=== PATIENT | female | born 1955 | race Caucasian/White ===

== ENCOUNTER 2019-04-03 01:33 | Outpatient (CLI) | payer MEDICARE, OTHER | END 2019-04-03 01:34 | disposition critical access hospital (66) | LOC: EMS 01:33 | PROVIDERS: ATTEND Surgery | DX: K92.1 Melena (principal); R42 Dizziness and giddiness | CPT/HCPCS: A0425; A0427 ==

== ENCOUNTER 2019-04-03 02:01 | Observation (INO) | payer MEDICARE, OTHER ==
[2019-04-03] MEDS ORDERED: SODIUM CHLORIDE 0.9% 1,000 ML IV STA (02:15)
[2019-04-03] MEDS ORDERED: IOVERSOL 320 100 ML VIAL IVP ONE ×2 (02:31→03:16)
--- NOTE | 2019-04-03 02:32 | ED Physician Documentation ---
History of Present Illness - Stated complaint Stated Complaint: DIARRHEA, RECTAL BLEED - Chief complaint Chief Complaint: Abd Pain - History obtained from History obtained from: Patient - History of Present Illness Timing: Yesterday Pain level max: 4 Pain level now: 0 - Additonal information Additional information: Patient with diarrhea since yesterday. BRBPR tonight with diarrhea. States felt lightheaded and dizzy after. no fevers. no recent abx. Travelled to [place] a few weeks ago. No recent surgery. No vomiting. Reportedly normal colonoscopy 5 years ago. Nothing makes it better or worse. Had a second near syncopal episode with EMS tonight. 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 : None HEENT: None Psych: None Musculoskeletal: None Derm: None - Past Surgical History Past Surgical History: No - Present Medications Home Medications: Ambulatory Orders Medication Instructions Recorded Confirmed Lisinopril/Hydrochlorothiazide 1 each PO 01/06/14 01/06/14 [Lisinopril-Hctz 20-12.5 mg Tab] - Allergies Allergies/Adverse Reactions: Allergies Allergy/AdvReac Type Severity Reaction Status Date / Time No Known Drug Allergies Allergy Verified 01/06/14 19:17 - Social History Does the pt smoke?: No Smoking Status: Never smoker Does the pt drink ETOH?: No Does the pt have substance abuse?: No - Immunizations Immunizations are current?: Yes - POLST Patient has POLST: No PD ED PE NORMAL - Vitals Vital signs reviewed: Yes - General General: Alert and oriented X 3, No acute distress, Well developed/nourished - HEENT HEENT: Moist mucous membranes - Neck Neck: Supple, no meningeal sign - Cardiac Cardiac: RRR, Strong equal pulses - Respiratory Respiratory: No respiratory distress, Clear bilaterally - Abdomen Abdomen: Normal bowel sounds, Soft, Non tender, Non distended - Female Female : Regional Environmental Manager present (Radha RN), Other (BRB in the rectal vault. 1 small non-bleeding hemorrhoid. ) - Back Back: No CVA TTP, No spinal TTP - Derm Derm: Warm and dry, No rash - Extremities Extremities: No edema - Neuro Neuro: Alert and oriented X 3 - Psych Psych: Normal mood, Normal affect Results - Vitals Vitals: Vital Signs - 24 hr 04/03/19 04/03/19 04/03/19 02:05 02:23 02:54 Temperature 36.3 C L Heart Rate 82 67 Respiratory 16 17 16 Rate Blood Pressure 195/103 H 145/87 H O2 Saturation 98 99 04/03/19 04:16 Temperature Heart Rate 69 Respiratory 18 Rate Blood Pressure 141/76 H O2 Saturation 99 Oxygen O2 Source Room air - Labs Labs: Laboratory Tests 04/03/19 04/03/19 04/03/19 02:30 02:30 02:30 WBC 6.8 RBC 3.56 L Hgb 9.8 L Hct 29.3 L MCV 82.2 MCH 27.5 MCHC 33.4 RDW 15.1 H Plt Count 247 MPV 6.3 L Neut # (Auto) 4.5 Lymph # (Auto) 1.7 Garden # (Auto) 0.4 Eos # (Auto) 0.1 Baso # (Auto) 0.0 Absolute Nucleated RBC 0.00 Nucleated RBC % 0.0 Sodium 140 Potassium 3.9 Chloride 107 Carbon Dioxide 25 Anion Gap 8.0 BUN 24 H Creatinine 1.0 Estimated GFR (MDRD) 56 L Glucose 128 H Calcium 8.1 L Total Bilirubin 0.4 AST 19 ALT 15 Alkaline Phosphatase 45 Total Protein 5.4 L Albumin 3.1 L Globulin 2.3 Albumin/Globulin Ratio 1.3 Lipase 46 Blood Type A POSITIVE Antibody Screen NEGATIVE - Rads (name of study) CT abdomen pelvis Radiology: Prelim report reviewed, EMP read contemporaneously, See rad report (Colonic diverticulosis with no definite diverticulitis. 2. Liquid stool in the colon consistent with a history of diarrhea. 3. No other acute inflammatory or obstructive process seen in the abdomen or pelvis. ) PD MEDICAL DECISION MAKING - ED course Complexity details: reviewed results, re-evaluated patient, considered differential, d/w patient, d/w field consultant ED course: 63-year-old female presents to the emergency department with lower GI bleeding and diarrhea. No acute findings on CT scan. She is found to be anemic. Unclear where her normal hemoglobin and hematocrit are. Given her new anemia, at least compared to her last CBC which she estimates was 2 years ago, I think it is prudent to place her in observation for serial H&H. She had a normal colonoscopy 5 years ago. General surgery can be consulted during the daytime by the hospitalist. Discussed the case with hospitalist, Dr. Madsen who accepts. This document was made in part using voice recognition software. While efforts are made to proofread this document, sound alike and grammatical errors may occur. Departure - Departure Disposition: ED Place in Observation Clinical Impression: Hematochezia Anemia Qualifiers: Anemia type: unspecified type Qualified Code(s): D64.9 - Anemia, unspecified GI bleed Qualifiers: GI bleed type/associated pathology: unspecified gastrointestinal hemorrhage type Qualified Code(s): K92.2 - Gastrointestinal hemorrhage, unspecified Condition: Stable
[2019-04-03 02:41] LABS: BASOPHILS % (AUTO) 0.6 %; EOSINOPHILS # (AUTO) 0.1 10^3/uL (0.0-0.7); EOSINOPHILS % (AUTO) 1.6 %; HGB - HEMOGLOBIN 9.8 g/dL (12.0-16.0); LYMPHOCYTES # (AUTO) 1.7 10^3/uL (1.5-3.5); LYMPHOCYTES % (AUTO) 25.4 %; MEAN CORPUSCULAR HEMOGLOBIN 27.5 pg (27.0-31.0); MEAN CORPUSCULAR HGB CONC 33.4 g/dL (32.0-36.0); MEAN CORPUSCULAR VOLUME 82.2 fL (81.0-99.0); MEAN PLATELET VOLUME 6.3 fL (7.9-10.8); MONOCYTES # (AUTO) 0.4 10^3/uL (0.0-1.0); MONOCYTES % (AUTO) 6.3 %; NEUTROPHILS # (AUTO) 4.5 10^3/uL (1.5-6.6); NEUTROPHILS % (AUTO) 66.1 %; PLT - PLATELET COUNT 247 10^3/uL (130-450); RED BLOOD COUNT 3.56 10^6/uL (4.20-5.40); RED CELL DISTRIBUTION WIDTH 15.1 % (12.0-15.0); WHITE BLOOD COUNT 6.8 x10^3/uL (4.8-10.8)
[2019-04-03 02:53] LABS: ALBUMIN 3.1 g/dL (3.2-5.5); ALBUMIN/GLOBULIN RATIO 1.3 (1.0-2.2); BILIRUBIN,TOTAL 0.4 mg/dL (0.2-1.0); CALCIUM 8.1 mg/dL (8.5-10.3); TOTAL PROTEIN 5.4 g/dL (6.7-8.2)
--- NOTE | 2019-04-03 03:38 | CT Report ---
Reason: diarrhea, hematochezia Procedure Date: 04/03/2019 Accession Number: [id number] / [id number] Procedure: CT - Abdomen/Pelvis W CPT Code: FULL RESULT: EXAM: CT ABDOMEN AND PELVIS EXAM DATE: 04/03/2019 03:18 AM. CLINICAL HISTORY: Diarrhea, hematochezia. COMPARISONS: None. TECHNIQUE: Routine helical CT imaging was performed through the abdomen and pelvis. IV contrast: [id number] 100ml. Enteric contrast: No. Reconstructions: Coronal and sagittal. In accordance with CT protocol optimization, one or more of the following dose reduction techniques were utilized for this exam: automated exposure control, adjustment of mA and/or KV based on patient size, or use of iterative reconstructive technique. FINDINGS: Lung Bases: Unremarkable. Liver: No focal abnormality seen. Gallbladder/Bile Ducts: Unremarkable. Spleen: Normal. Pancreas: Normal. Adrenal Glands: Normal. Kidneys: Normal. No masses or hydronephrosis. Peritoneal Cavity/Bowel: Colonic diverticulosis. No diverticulitis identified. Liquid stool in the colon. No bowel obstruction seen. No free air or free fluid. No lymphadenopathy. Appendix appears normal. Pelvic Organs: Normal. The bladder and visualized pelvic organs are within normal limits. Vasculature: Moderate atherosclerosis. No aortic aneurysm. Bones: Degenerative changes in the spine. Other: None. IMPRESSION: 1. Colonic diverticulosis with no definite diverticulitis. 2. Liquid stool in the colon consistent with a history of diarrhea. 3. No other acute inflammatory or obstructive process seen in the abdomen or pelvis. RADIA
[2019-04-03] MEDS ORDERED: SODIUM CHLORIDE FLUSH 0.9% 10 ML SYRINGE IVP PRN (04:24)
--- NOTE | 2019-04-03 05:29 | HISTORY & PHYSICAL EXAMINATION ---
Chief Complaint - Chief Complaint Chief Complaint: bright red blood per rectum History of Present Illness - Admitted From Admitted From:: [facility] ED - History Obtained From Records Reviewed: yes History obtained from: patient - History of Present Illness HPI Comment/Other: Patient seen on 04/03/19 at 0500 am Patient is a 63 y/o female who is in very good health. She presented to the ED today via EMS after having about 6 episodes of bloody bowel movement at home. She reports that there was more blood than stool. Onset of her symptoms was around 0830pm on 04/02/19 about 1hr after she had a deli sandwich for dinner. Earlier in the day she played tennis with no difficulty. After the first episode she felt very dizzy and weak and could barely get out of the bathroom. She dialed 911. When EMS arrived, her vitals were stable. However, in the course of their evaluation she reported not feeling well and "phased out". Her SBP at the time was in the 70's. She denied any previous occurrence of these symptoms. She denied chest pain, LEFTY, abd pain, n/v, fever or chills. 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 She was on a medication whose name she does not remember and is no longer taking. She also use to take a blood pressure medication during that time but no longer does so. The rest of her history is unremarkable. 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 : reports: None HEENT: reports: None Psych: reports: None Musculoskeletal: reports: None Derm: reports: None MRSA Hx?: No - Past Surgical History Ortho: reports: ACL reconstruction (left knee) - Family & Social History Family History: Mother: (mother: from pneumonia, sister had brain aneurysm), Father: , Renal Disease/Failure Family History Comment/Other: She is the only surviving member of her family Living arrangement: At home Living Situation: Alone Social History Notes: She denies tobacco use, alcohol or illicit drug use - POLST Patient has POLST: No POLST Status: Full Code Meds/Allgy - Home Medications Home Medications: Ambulatory Orders Medication Instructions Recorded Confirmed Lisinopril/Hydrochlorothiazide 1 each PO 01/06/14 01/06/14 [Lisinopril-Hctz 20-12.5 mg Tab] - Allergies Allergies/Adverse Reactions: Allergies Allergy/AdvReac Type Severity Reaction Status Date / Time No Known Drug Allergies Allergy Verified 01/06/14 19:17 Review of Systems - Constitutional Constitutional: reports: Weakness. denies: Fatigue, Fever, Chills, Malaise, Poor appetite, Diaphoresis, Night sweats - Eyes Eyes: denies: Pain, Blurred vision, Vision loss, Dipolpia - Ears, Nose & Throat Ears, Nose & Throat: denies: Nasal pain, Nasal discharge, Sore throat, Hoarseness - Cardiovascular Cariovascular: reports: Lightheadedness. denies: Irregular heart rate, Palpitations, Chest pain, Edema, Syncope, Exertional dyspnea, Decr. exercise tolerance - Respiratory Respiratory: denies: Cough, Sputum production, Wheezing, SOB at rest - Gastrointestinal Gastrointestinal: reports: Diarrhea, Rectal bleeding, Bloody stools. denies: Ab dominal pain, Abdominal distention, Nausea, Vomiting, Coffee grounds emesis, Reflux/heartburn, Poor appetite - Genitourinary Genitourinary: denies: Dysuria, Frequency, Urgency, Hematuria, Incontinence, Flank pain, Nocturia, Urethral discharge - Musculoskeletal Musculoskeletal: denies: Muscle pain, Back pain, Muscle aches, Stiffness - Integumentary Integumentary: denies: Rash, Pruritis, Lesions - Psychiatric Psychiatric: denies: Depression, Anxiety - Endocrine Endocrine: denies: Polyuria, Polydypsia - Hematologic/Lymphatic Hematologic/Lymphatic: denies: Anemia, Bruising, Petechiae Prior Level of Functionality: She is very active. 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 negative: Lethargic Eyes Bilateral: positive: Normal inspection, PERRL, EOMI ENT: positive: ENT inspection nml, Pharynx nml Neck: positive: Nml inspection, No JVD, Trachea midline Respiratory: positive: Chest non-tender, No respiratory distress, Breath sounds nml Cardiovascular: positive: Regular rate & rhythm, No murmur Abdomen: positive: Non-tender, No organomegaly, Nml bowel sounds, No distention. negative: Guarding, Rebound Rectal: positive: Bloody stool Back: positive: Nml inspection Skin: positive: Color nml, No rash, Warm, Dry Extremities: positive: Non-tender, Full ROM, Nml appearance, No pedal edema Neurologic/Psychiatric: positive: Oriented x3, CN's nml (2-12) Conclusion/Plan - Problem List (1) GI bleed Conclusion/Plan: Etiology undermined NPO. IV hydration with normal saline Serial H&H q6hr X 4 Consult General Surgery Qualifiers: GI bleed type/associated pathology: unspecified gastrointestinal hemorrhage type Qualified Code(s): K92.2 - Gastrointestinal hemorrhage, unspecified (2) Hypertension Conclusion/Plan: No longer taking any medication - Lab Results Fish Bones: 04/03/19 02:30 04/03/19 02:30 - Diagnostic Imaging Results Diagnostic Imaging Results: positive: Final report reviewed Core Measures - Anticipated LOS I expect patient to be DC'd or transferred within 96 hours.: Yes - DVT/VTE - Prophylaxis VTE/DVT Device ordered at admit?: Yes VTE/DVT Prophylaxis med ordered at admit?: No Not Ordered - Medical Reason: Contraindicated (bloody stools)
[2019-04-03] MEDS ORDERED: SODIUM CHLORIDE 0.9% 500 ML IV ONE (06:28)
[2019-04-03 06:52] LABS: BILIRUBIN,URINE NEGATIVE (NEGATIVE); GLUCOSE, URINE (UA) NEGATIVE (NEGATIVE); KETONES,URINE (UA) NEGATIVE (NEGATIVE); LEUKOCYTE ESTERASE, URINE NEGATIVE (NEGATIVE); NITRITE,URINE NEGATIVE (NEGATIVE); OCCULT BLOOD,URINE SMALL (NEGATIVE); PROTEIN,URINE NEGATIVE (NEGATIVE); UROBILINOGEN,URINE 0.2 (NORMAL) E.U./dL (NORMAL)
[2019-04-03 07:05] LABS: CLARITY,URINE CLEAR (CLEAR)
[2019-04-03 07:33] LABS: AMORPHOUS SEDIMENT,UR Few /LPF; BACTERIA,URINE Few /HPF (None Seen); RBC,URINE 0-5 /HPF (0-5); SQUAMOUS EPITHELIAL CELL,UR FEW Squamous (<= Few)
[2019-04-03 08:00] LABS: ABSOLUTE RETICS # AUTO 0.04 10^6/uL (0.020-0.110); MEAN RETIC VALUE 100.7; RED BLOOD COUNT 2.91 10^6/uL (4.20-5.40)
[2019-04-03 08:06] LABS: MEAN CORPUSCULAR HEMOGLOBIN 27.2 pg (27.0-31.0); MEAN CORPUSCULAR HGB CONC 32.9 g/dL (32.0-36.0); MEAN CORPUSCULAR VOLUME 82.6 fL (81.0-99.0); MEAN PLATELET VOLUME 6.2 fL (7.9-10.8); RED BLOOD COUNT 2.94 10^6/uL (4.20-5.40); RED CELL DISTRIBUTION WIDTH 15.3 % (12.0-15.0)
[2019-04-03 08:19] LABS: % IRON SATURATION 13 % (20-50); IRON 37 ug/dL (28-170); TOTAL IRON BINDING CAPACITY 277 ug/dL (250-450); TRANSFERRIN 198 mg/dL (192-382)
[2019-04-03] MEDS: MIDODRINE 2.5 MG TABLET PO SCH ×2 (08:20→12:03)
[2019-04-03] MEDS: SODIUM CHLORIDE 0.9% 1,000 ML IV SCH ×2 (08:20→19:29)
[2019-04-03 08:28] LABS: INR 1.1 (0.8-1.2); PT - PROTHROMBIN TIME 11.9 secs (9.9-12.6)
[2019-04-03 08:37] LABS: FERRITIN 11.6 ng/mL (11.0-306.8)
[2019-04-03] MEDS: SODIUM CHLORIDE FLUSH 0.9% 10 ML SYRINGE IVP SCH ×2 (09:51→17:27)
[2019-04-03] MEDS: POLYETHYLENE GLYCOL 3350 17 GM PACKET PO SCH (09:51)
--- NOTE | 2019-04-03 10:31 | CONSULTATION NOTE ---
Referring Provider Consult Date: 04/03/19 Chief Complaint - Chief Complaint Chief Complaint: blood in stool History of Present Illness - History of Present Illness HPI Comment/Other: 63 yo woman noted bloody BMs overnight and this morning. Last cscope 5 years ago and normal. 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 : reports: None HEENT: reports: None Psych: reports: None Musculoskeletal: reports: None Derm: reports: None MRSA Hx?: No - Past Surgical History Ortho: reports: ACL reconstruction - Family & Social History Family History: Mother: (mother: from pneumonia, sister had brain aneurysm), Father: , Renal Disease/Failure Family History Comment/Other: She is the only surviving member of her family Living arrangement: At home Living Situation: Alone Social History Notes: She denies tobacco use, alcohol or illicit drug use - POLST Patient has POLST: No POLST Status: Full Code Meds/Allgy - Home Medications Home Medications: Ambulatory Orders Medication Instructions Recorded Confirmed Lisinopril/Hydrochlorothiazide 1 each PO 01/06/14 01/06/14 [Lisinopril-Hctz 20-12.5 mg Tab] - Allergies Allergies/Adverse Reactions: Allergies Allergy/AdvReac Type Severity Reaction Status Date / Time No Known Drug Allergies Allergy Verified 01/06/14 19:17 Exam - Vital Signs Vital Signs: Vital Signs x48h Temp Pulse Pulse Pulse Pulse Resp BP 04/03/19 08:24 93 04/03/19 08:22 78 04/03/19 08:20 36.6 C 71 17 04/03/19 06:47 65 04/03/19 06:25 62 04/03/19 06:21 61 04/03/19 06:10 36.6 C 74 18 04/03/19 05:42 36.3 C L 67 17 04/03/19 05:20 63 16 117/85 H 04/03/19 04:41 65 18 109/66 04/03/19 04:16 69 18 141/76 H 04/03/19 02:54 67 16 145/87 H BP BP BP Pulse Ox 04/03/19 08:24 57/34 L 04/03/19 08:22 121/59 L 04/03/19 08:20 132/68 H 98 04/03/19 06:47 115/62 04/03/19 06:25 90/47 L 04/03/19 06:21 77/40 L 04/03/19 06:10 131/66 H 100 04/03/19 05:42 100 04/03/19 05:20 04/03/19 04:41 04/03/19 04:16 99 04/03/19 02:54 99 - Physical Exam General Appearance: positive: No acute distress Eyes Bilateral: positive: Normal inspection Abdomen: positive: Non-tender Extremities: positive: Non-tender Neurologic/Psychiatric: positive: Oriented x3 Conclusion/Plan - Diagnosis Diagnosis: GI bleed - Plan Plan: Prep today for colonoscopy tomorrow - Lab Results Fish Bones: 04/03/19 07:47 04/03/19 02:30
[2019-04-03 10:46] LABS: HB2 TOTAL 7.9 g/dL; HEMOGLOBIN A1C 0.34 g/dL; HEMOGLOBIN A1C % 6.1 % (4.6-6.2)
--- NOTE | 2019-04-03 11:22 | Ultrasound Report ---
Reason: syncope Procedure Date: 04/03/2019 Accession Number: [id number] / [id number] Procedure: US - Carotid Doppler Complete CPT Code: FULL RESULT: EXAM: BILATERAL CAROTID AND VERTEBRAL ARTERY DUPLEX DOPPLER ULTRASOUND: EXAM DATE: 04/03/2019 10:55 AM CLINICAL HISTORY: Syncope. COMPARISON: None. TECHNIQUE: Grayscale imaging, color Doppler, and duplex spectral Doppler were used to evaluate the carotid and vertebral arteries bilaterally. Static images were obtained. FINDINGS: There is mild intimal thickening bilaterally. No significant plaque is identified in the right or left common or internal carotid arteries. Normal antegrade flow is present in bilateral vertebral arteries. VELOCITIES (cm/sec): RIGHT: CCA mid: PSV 109 cm/sec CCA dist: PSV 93 cm/sec ICA prox: PSV 103 cm/sec, EDV 21 cm/sec ICA mid: PSV 106 cm/sec, EDV 38 cm/sec ICA dist: PSV 82 cm/sec, EDV 27 cm/sec ECA: PSV 115 cm/sec Vert: PSV 85 cm/sec ICA/CCA: 1.1 LEFT: CCA mid: PSV 114 cm/sec CCA dist: PSV 96 cm/sec ICA prox: PSV 92 cm/sec, EDV 31 cm/sec ICA mid: PSV 103 cm/sec, EDV 39 cm/sec ICA dist: PSV 79 cm/sec, EDV 31 cm/sec ECA: PSV 99 cm/sec Vert: PSV 66 cm/sec ICA/CCA: 1.1 ICA diameter stenosis: Right: <50% by velocity and <70% by NASCET criteria. Left: <50% by velocity and <70% by NASCET criteria. IMPRESSION: 1. No significant bilateral carotid artery plaquing. 2. In the right carotid artery there are no elevated carotid artery velocities to suggest hemodynamically significant stenosis. 3. In the left carotid artery there are no elevated carotid artery velocities to suggest hemodynamically significant stenosis. 4. Normal antegrade flow is present in bilateral vertebral arteries. General Recommendations: Stenosis =50% ICA - Follow-up ultrasound 6-12 months Stenosis <50% ICA - High Risk Patient with plaque - Follow-up ultrasound 1-2 years Normal Study but High Risk Patient - Follow-up ultrasound 3-5 years Management recommendations and diagnostic criteria are based on current IAC endorsed standards in Carotid Artery Stenosis: Grayscale and Doppler Ultrasound Diagnosis. Validated velocity measurements with angiographic measurements and velocity criteria are extrapolated from diameter data as defined by the Society of Radiologists in Ultrasound Consensus Conference Radiology 2003; 229;340-346. RADIA
--- NOTE | 2019-04-03 11:53 | PROVIDER PROGRESS NOTE ---
Subjective - Prog Note Date Prog Note Date: 04/03/19 - Subjective Pt reports feeling: No change Subjective: pt report she still has GI rectal bring bleed at the morning and very dizziness when she tried to stand up, her SBP is down to 57. pt denies chest pain, shortness of breath, fever, chill. GI surgeon was called and plan to have colonoscopy on tomorrow. Current Medications - Current Medications Current Medications: Active Medications Ferrous Sulfate (Feosol) 325 mg PO BIDWM [facility] Sodium Chloride (Normal Saline 0.9%) 1,000 mls @ 125 mls/hr IV .Q8H [facility] Last Admin: 04/03/19 08:20 Dose: 125 mls/hr Midodrine () 2.5 mg PO TIDWM [facility] Last Admin: 04/03/19 08:20 Dose: 2.5 mg Polyethylene Glycol (Miralax) 17 gm PO DAILY [facility] Last Admin: 04/03/19 09:51 Dose: Not Given Sodium Chloride (Normal Saline Flush 0.9%) 10 ml IVP PRN PRN PRN Reason: NEEDED PER PROVIDER ORDERS Sodium Chloride (Normal Saline Flush 0.9%) 10 ml IVP 0100,0900,1700 [facility] Last Admin: 04/03/19 09:51 Dose: Not Given Sodium Sulfate/Potass Sulf/Mag Sulf (Suprep Bowel Prep Kit) 177 ml PO 1800,0500 [facility] Stop: 04/04/19 05:01 [employer] [facility] Packs 1 each PO DAILY 04/03/19 Objective - Vital Signs/Intake & Output Reviewed Vital Signs: Yes Vital Signs: Vital Signs x48h Temp Pulse Pulse Pulse Pulse Resp BP 04/03/19 10:26 36.6 C 93 16 04/03/19 08:24 93 04/03/19 08:22 78 04/03/19 08:20 36.6 C 71 17 04/03/19 06:47 65 04/03/19 06:25 62 04/03/19 06:21 61 04/03/19 06:10 36.6 C 74 18 04/03/19 05:42 36.3 C L 67 17 04/03/19 05:20 63 16 117/85 H 04/03/19 04:41 65 18 109/66 04/03/19 04:16 69 18 141/76 H BP BP BP Pulse Ox 05/24/19 10:26 97 04/03/19 08:24 57/34 L 04/03/19 08:22 121/59 L 04/03/19 08:20 132/68 H 98 04/03/19 06:47 115/62 04/03/19 06:25 90/47 L 04/03/19 06:21 77/40 L 04/03/19 06:10 131/66 H 100 04/03/19 05:42 100 04/03/19 05:20 04/03/19 04:41 04/03/19 04:16 99 Intake & Output: Intake & Output 03/31/19 04/01/19 04/02/19 04/03/19 23:59 23:59 23:59 23:59 Intake Total 1800 Output Total 30 Balance 1770 - Objective General Appearance: positive: No acute distress, Alert. negative: Lethargic Eyes Bilateral: positive: Normal inspection, PERRL, No lid inflammation, Conjunctivae nml ENT: positive: ENT inspection nml, Pharynx nml, No signs of dehydration. negative: Purulent nasal drainage, Pharyngeal erythema, Oral lesions Neck: positive: Nml inspection, Thyroid nml, No JVD, Trachea midline. negative: Thyromegaly, Lymphadenopathy (R), Lymphadenopathy (L), Stiff neck, Swelling/br uising, Tracheal deviation Respiratory: positive: Chest non-tender, No respiratory distress, Breath sounds nml. negative: Wheezes, Rales, Rhonchi Cardiovascular: positive: Regular rate & rhythm, No murmur, No gallop. negative: Irregularly irregular, Extrasystoles, Tachycardia, Bradycardia, JVD present, Systolic murmur, Diastolic murmur Peripheral Pulses: 2+ Radial (R), 2+ Radial (L), 2+ Dorsalis pedis (R), 2+ Dorsalis pedis (L) Abdomen: positive: Non-tender, No organomegaly, Nml bowel sounds, No distention. negative: Tenderness, Guarding, Rebound Back: positive: Nml inspection. negative: CVA tenderness (R), CVA tenderness (L) Skin: positive: Color nml, No rash, Warm, Dry. negative: Cyanosis, Diaphoresis, Pallor Extremities: positive: Non-tender, Full ROM, Nml appearance. negative: Calf tenderness, Joint swelling, Adams's sign/cords Neurologic/Psychiatric: positive: Oriented x3, Motor nml, Sensation nml, Mood/affect nml. negative: Weakness, Sensory loss, Facial droop, Slurred/abnml speech, Depressed mood/affect - Lab Results Fish Bones: 04/03/19 07:47 04/03/19 02:30 Other Labs: Lab Results x24hrs 04/03/19 04/03/19 04/03/19 Range/Units 07:47 07:47 07:47 WBC (4.8-10.8) x10^3/uL RBC (4.20-5.40) 10^6/uL Hgb (12.0-16.0) g/dL Hct (37.0-47.0) % MCV (81.0-99.0) fL MCH (27.0-31.0) pg MCHC (32.0-36.0) g/dL RDW (12.0-15.0) % Plt Count (130-450) 10^3/uL MPV (7.9-10.8) fL Reticulocyte % (Auto) (0.5-2.3) % Neut # (Auto) (1.5-6.6) 10^3/uL Lymph # (Auto) (1.5-3.5) 10^3/uL [place] # (Auto) (0.0-1.0) 10^3/uL Eos # (Auto) (0.0-0.7) 10^3/uL Baso # (Auto) (0.0-0.1) 10^3/uL Absolute Nucleated RBC x10^3/uL Nucleated RBC % /100WBC Absolute Retic (0.020-0.110) 10^6/uL PT (9.9-12.6) secs INR (0.8-1.2) Sodium (135-145) mmol/L Potassium (3.5-5.0) mmol/L Chloride (101-111) mmol/L Carbon Dioxide (21-32) mmol/L Anion Gap (6-13) BUN (6-20) mg/dL Creatinine (0.4-1.0) mg/dL Estimated GFR (MDRD) (>89) Glucose (70-100) mg/dL Glycated Hemoglobin 6.1 (4.6-6.2) % Estim Average Glucose 128 H (70-100) Calcium (8.5-10.3) mg/dL Iron (28-170) ug/dL TIBC (250-450) ug/dL % Saturation (20-50) % Transferrin (192-382) mg/dL Ferritin (11.0-306.8) ng/mL Total Bilirubin (0.2-1.0) mg/dL AST (10-42) IU/L ALT (10-60) IU/L Alkaline Phosphatase (42-121) IU/L Lactate Dehydrogenase 97 (91-225) IU/L Troponin I < 0.04 (<0.49) ng/mL Total Protein (6.7-8.2) g/dL Albumin (3.2-5.5) g/dL Globulin (2.1-4.2) g/dL Albumin/Globulin Ratio (1.0-2.2) Lipase (22-51) U/L Vitamin B12 (180-914) pg/mL TSH (0.34-5.60) uIU/mL Cortisol AM Sample ug/dL Urine Color Urine Clarity (CLEAR) Urine pH (5.0-7.5) PH Ur Specific [place] (1.002-1.030) Urine Protein (NEGATIVE) mg/dL Urine Glucose (UA) (NEGATIVE) mg/dL Urine Ketones (NEGATIVE) mg/dL Urine Occult Blood (NEGATIVE) Urine Nitrite (NEGATIVE) Urine Bilirubin (NEGATIVE) Urine Urobilinogen (NORMAL) E.U./dL Ur Leukocyte Esterase (NEGATIVE) Urine RBC (0-5) /HPF Urine WBC (0-5) /HPF Ur Squamous Epith Cells (<= Few) Amorphous Sediment /LPF Urine Bacteria (None Seen) /HPF Ur Microscopic Review Urine Culture Comments Blood Type Antibody Screen 04/03/19 04/03/19 04/03/19 Range/Units 07:47 07:47 07:47 WBC (4.8-10.8) x10^3/uL RBC 2.91 L (4.20-5.40) 10^6/uL Hgb (12.0-16.0) g/dL Hct (37.0-47.0) % MCV (81.0-99.0) fL MCH (27.0-31.0) pg MCHC (32.0-36.0) g/dL RDW (12.0-15.0) % Plt Count (130-450) 10^3/uL MPV (7.9-10.8) fL Reticulocyte % (Auto) 1.38 (0.5-2.3) % Neut # (Auto) (1.5-6.6) 10^3/uL Lymph # (Auto) (1.5-3.5) 10^3/uL [place] # (Auto) (0.0-1.0) 10^3/uL Eos # (Auto) (0.0-0.7) 10^3/uL Baso # (Auto) (0.0-0.1) 10^3/uL Absolute Nucleated RBC x10^3/uL Nucleated RBC % /100WBC Absolute Retic 0.040 (0.020-0.110) 10^6/uL PT (9.9-12.6) secs INR (0.8-1.2) Sodium (135-145) mmol/L Potassium (3.5-5.0) mmol/L Chloride (101-111) mmol/L Carbon Dioxide (21-32) mmol/L Anion Gap (6-13) BUN (6-20) mg/dL Creatinine (0.4-1.0) mg/dL Estimated GFR (MDRD) (>89) Glucose (70-100) mg/dL Glycated Hemoglobin (4.6-6.2) % Estim Average Glucose (70-100) Calcium (8.5-10.3) mg/dL Iron 37 (28-170) ug/dL TIBC 277 (250-450) ug/dL % Saturation 13 L (20-50) % Transferrin 198 (192-382) mg/dL Ferritin 11.6 (11.0-306.8) ng/mL Total Bilirubin (0.2-1.0) mg/dL AST (10-42) IU/L ALT (10-60) IU/L Alkaline Phosphatase (42-121) IU/L Lactate Dehydrogenase (91-225) IU/L Troponin I (<0.49) ng/mL Total Protein (6.7-8.2) g/dL Albumin (3.2-5.5) g/dL Globulin (2.1-4.2) g/dL Albumin/Globulin Ratio (1.0-2.2) Lipase (22-51) U/L Vitamin B12 1853 H (180-914) pg/mL TSH (0.34-5.60) uIU/mL Cortisol AM Sample ug/dL Urine Color Urine Clarity (CLEAR) Urine pH (5.0-7.5) PH Ur Specific [place] (1.002-1.030) Urine Protein (NEGATIVE) mg/dL Urine Glucose (UA) (NEGATIVE) mg/dL Urine Ketones (NEGATIVE) mg/dL Urine Occult Blood (NEGATIVE) Urine Nitrite (NEGATIVE) Urine Bilirubin (NEGATIVE) Urine Urobilinogen (NORMAL) E.U./dL Ur Leukocyte Esterase (NEGATIVE) Urine RBC (0-5) /HPF Urine WBC (0-5) /HPF Ur Squamous Epith Cells (<= Few) Amorphous Sediment /LPF Urine Bacteria (None Seen) /HPF Ur Microscopic Review Urine Culture Comments Blood Type Antibody Screen 04/03/19 04/03/19 04/03/19 Range/Units 07:47 07:47 07:47 WBC 7.0 (4.8-10.8) x10^3/uL RBC 2.94 L (4.20-5.40) 10^6/uL Hgb 8.0 L (12.0-16.0) g/dL Hct 24.3 L (37.0-47.0) % MCV 82.6 (81.0-99.0) fL MCH 27.2 (27.0-31.0) pg MCHC 32.9 (32.0-36.0) g/dL RDW 15.3 H (12.0-15.0) % Plt Count 228 (130-450) 10^3/uL MPV 6.2 L (7.9-10.8) fL Reticulocyte % (Auto) (0.5-2.3) % Neut # (Auto) (1.5-6.6) 10^3/uL Lymph # (Auto) (1.5-3.5) 10^3/uL [place] # (Auto) (0.0-1.0) 10^3/uL Eos # (Auto) (0.0-0.7) 10^3/uL Baso # (Auto) (0.0-0.1) 10^3/uL Absolute Nucleated RBC x10^3/uL Nucleated RBC % /100WBC Absolute Retic (0.020-0.110) 10^6/uL PT (9.9-12.6) secs INR (0.8-1.2) Sodium (135-145) mmol/L Potassium (3.5-5.0) mmol/L Chloride (101-111) mmol/L Carbon Dioxide (21-32) mmol/L Anion Gap (6-13) BUN (6-20) mg/dL Creatinine (0.4-1.0) mg/dL Estimated GFR (MDRD) (>89) Glucose (70-100) mg/dL Glycated Hemoglobin (4.6-6.2) % Estim Average Glucose (70-100) Calcium (8.5-10.3) mg/dL Iron (28-170) ug/dL TIBC (250-450) ug/dL % Saturation (20-50) % Transferrin (192-382) mg/dL Ferritin (11.0-306.8) ng/mL Total Bilirubin (0.2-1.0) mg/dL AST (10-42) IU/L ALT (10-60) IU/L Alkaline Phosphatase (42-121) IU/L Lactate Dehydrogenase (91-225) IU/L Troponin I (<0.49) ng/mL Total Protein (6.7-8.2) g/dL Albumin (3.2-5.5) g/dL Globulin (2.1-4.2) g/dL Albumin/Globulin Ratio (1.0-2.2) Lipase (22-51) U/L Vitamin B12 (180-914) pg/mL TSH 2.74 (0.34-5.60) uIU/mL Cortisol AM Sample 13.7 ug/dL Urine Color Urine Clarity (CLEAR) Urine pH (5.0-7.5) PH Ur Specific [place] (1.002-1.030) Urine Protein (NEGATIVE) mg/dL Urine Glucose (UA) (NEGATIVE) mg/dL Urine Ketones (NEGATIVE) mg/dL Urine Occult Blood (NEGATIVE) Urine Nitrite (NEGATIVE) Urine Bilirubin (NEGATIVE) Urine Urobilinogen (NORMAL) E.U./dL Ur Leukocyte Esterase (NEGATIVE) Urine RBC (0-5) /HPF Urine WBC (0-5) /HPF Ur Squamous Epith Cells (<= Few) Amorphous Sediment /LPF Urine Bacteria (None Seen) /HPF Ur Microscopic Review Urine Culture Comments Blood Type Antibody Screen 04/03/19 04/03/19 04/03/19 Range/Units 06:10 05:24 02:30 WBC (4.8-10.8) x10^3/uL RBC (4.20-5.40) 10^6/uL Hgb (12.0-16.0) g/dL Hct (37.0-47.0) % MCV (81.0-99.0) fL MCH (27.0-31.0) pg MCHC (32.0-36.0) g/dL RDW (12.0-15.0) % Plt Count (130-450) 10^3/uL MPV (7.9-10.8) fL Reticulocyte % (Auto) (0.5-2.3) % Neut # (Auto) (1.5-6.6) 10^3/uL Lymph # (Auto) (1.5-3.5) 10^3/uL [place] # (Auto) (0.0-1.0) 10^3/uL Eos # (Auto) (0.0-0.7) 10^3/uL Baso # (Auto) (0.0-0.1) 10^3/uL Absolute Nucleated RBC x10^3/uL Nucleated RBC % /100WBC Absolute Retic (0.020-0.110) 10^6/uL PT 11.9 (9.9-12.6) secs INR 1.1 (0.8-1.2) Sodium (135-145) mmol/L Potassium (3.5-5.0) mmol/L Chloride (101-111) mmol/L Carbon Dioxide (21-32) mmol/L Anion Gap (6-13) BUN (6-20) mg/dL Creatinine (0.4-1.0) mg/dL Estimated GFR (MDRD) (>89) Glucose (70-100) mg/dL Glycated Hemoglobin (4.6-6.2) % Estim Average Glucose (70-100) Calcium (8.5-10.3) mg/dL Iron (28-170) ug/dL TIBC (250-450) ug/dL % Saturation (20-50) % Transferrin (192-382) mg/dL Ferritin (11.0-306.8) ng/mL Total Bilirubin (0.2-1.0) mg/dL AST (10-42) IU/L ALT (10-60) IU/L Alkaline Phosphatase (42-121) IU/L Lactate Dehydrogenase (91-225) IU/L Troponin I (<0.49) ng/mL Total Protein (6.7-8.2) g/dL Albumin (3.2-5.5) g/dL Globulin (2.1-4.2) g/dL Albumin/Globulin Ratio (1.0-2.2) Lipase (22-51) U/L Vitamin B12 (180-914) pg/mL TSH (0.34-5.60) uIU/mL Cortisol AM Sample ug/dL Urine Color YELLOW Urine Clarity CLEAR (CLEAR) Urine pH 7.0 (5.0-7.5) PH Ur Specific [place] <=1.005 (1.002-1.030) Urine Protein NEGATIVE (NEGATIVE) mg/dL Urine Glucose (UA) NEGATIVE (NEGATIVE) mg/dL Urine Ketones NEGATIVE (NEGATIVE) mg/dL Urine Occult Blood SMALL H (NEGATIVE) Urine Nitrite NEGATIVE (NEGATIVE) Urine Bilirubin NEGATIVE (NEGATIVE) Urine Urobilinogen 0.2 (NORMAL) (NORMAL) E.U./dL Ur Leukocyte Esterase NEGATIVE (NEGATIVE) Urine RBC 0-5 (0-5) /HPF Urine WBC 0-3 (0-5) /HPF Ur Squamous Epith Cells FEW Squamous (<= Few) Amorphous Sediment Few /LPF Urine Bacteria Few (None Seen) /HPF Ur Microscopic Review INDICATED Urine Culture Comments NOT INDICATED Blood Type A POSITIVE Antibody Screen NEGATIVE 04/03/19 04/03/19 Range/Units 02:30 02:30 WBC 6.8 (4.8-10.8) x10^3/uL RBC 3.56 L (4.20-5.40) 10^6/uL Hgb 9.8 L (12.0-16.0) g/dL Hct 29.3 L (37.0-47.0) % MCV 82.2 (81.0-99.0) fL MCH 27.5 (27.0-31.0) pg MCHC 33.4 (32.0-36.0) g/dL RDW 15.1 H (12.0-15.0) % Plt Count 247 (130-450) 10^3/uL MPV 6.3 L (7.9-10.8) fL Reticulocyte % (Auto) (0.5-2.3) % Neut # (Auto) 4.5 (1.5-6.6) 10^3/uL Lymph # (Auto) 1.7 (1.5-3.5) 10^3/uL [place] # (Auto) 0.4 (0.0-1.0) 10^3/uL Eos # (Auto) 0.1 (0.0-0.7) 10^3/uL Baso # (Auto) 0.0 (0.0-0.1) 10^3/uL Absolute Nucleated RBC 0.00 x10^3/uL Nucleated RBC % 0.0 /100WBC Absolute Retic (0.020-0.110) 10^6/uL PT (9.9-12.6) secs INR (0.8-1.2) Sodium 140 (135-145) mmol/L Potassium 3.9 (3.5-5.0) mmol/L Chloride 107 (101-111) mmol/L Carbon Dioxide 25 (21-32) mmol/L Anion Gap 8.0 (6-13) BUN 24 H (6-20) mg/dL Creatinine 1.0 (0.4-1.0) mg/dL Estimated GFR (MDRD) 56 L (>89) Glucose 128 H (70-100) mg/dL Glycated Hemoglobin (4.6-6.2) % Estim Average Glucose (70-100) Calcium 8.1 L (8.5-10.3) mg/dL Iron (28-170) ug/dL TIBC (250-450) ug/dL % Saturation (20-50) % Transferrin (192-382) mg/dL Ferritin (11.0-306.8) ng/mL Total Bilirubin 0.4 (0.2-1.0) mg/dL AST 19 (10-42) IU/L ALT 15 (10-60) IU/L Alkaline Phosphatase 45 (42-121) IU/L Lactate Dehydrogenase (91-225) IU/L Troponin I (<0.49) ng/mL Total Protein 5.4 L (6.7-8.2) g/dL Albumin 3.1 L (3.2-5.5) g/dL Globulin 2.3 (2.1-4.2) g/dL Albumin/Globulin Ratio 1.3 (1.0-2.2) Lipase 46 (22-51) U/L Vitamin B12 (180-914) pg/mL TSH (0.34-5.60) uIU/mL Cortisol AM Sample ug/dL Urine Color Urine Clarity (CLEAR) Urine pH (5.0-7.5) PH Ur Specific [place] (1.002-1.030) Urine Protein (NEGATIVE) mg/dL Urine Glucose (UA) (NEGATIVE) mg/dL Urine Ketones (NEGATIVE) mg/dL Urine Occult Blood (NEGATIVE) Urine Nitrite (NEGATIVE) Urine Bilirubin (NEGATIVE) Urine Urobilinogen (NORMAL) E.U./dL Ur Leukocyte Esterase (NEGATIVE) Urine RBC (0-5) /HPF Urine WBC (0-5) /HPF Ur Squamous Epith Cells (<= Few) Amorphous Sediment /LPF Urine Bacteria (None Seen) /HPF Ur Microscopic Review Urine Culture Comments Blood Type Antibody Screen ABX Reporting Has patient been on IV antibiotics over the past 48 hours?: No Sepsis Event Note (H) - Evaluation Current Stage of Sepsis: Ruled out Assessment/Plan - Problem List (1) Hematochezia Impression: pt report she had six times of fresh bleed at anus, and one more time at this morning. pt report she quit cigarette smoking more than 30yrs. she had health life style. She had colonoscopy a few yrs ago, which was normal per pt report. HGB is 9.8 at admission, H&H at morning is 8.0. continue H&H, and type and screen consult with GI surgeon, will plan to have colonoscopy on tomorrow. NPO afte midnight, IVF of NS continue lab monitor and vital monitor and closely monitor if pt continue to bleed Protonic IV daily (2) Anemia Impression: acute bleeding anemia. HGB is 9.8 at admission, H&H at morning is 8.0. MCV 82 iron study reveals mild iron deficiency, iron pill is prescribed continue H&H type and screen, will transfusion of blood as needed. Qualifiers: Anemia type: unspecified type Qualified Code(s): D64.9 - Anemia, unspecified (3) Orthostatic hypotension Impression: when pt standup, pt's SBP droop quickly from normal 120/130 to 50/70, and pause increase at the same time. pt report she did not have this kind of episode before and she did not take any blood pressure meds. she is not DM pt, pt has no cardiac problem before. But pt did have GI bleed and anemia, and volume depletion seems the cause ECHO and US of Carotid, reveals unremarkable IVF of NS continue H&H, type and scree, will transfusion of blood as needed. treat underline cause of rectal bleed, GI surgeon consult for colonoscopy check morning Cortisol and TSH are normal add midodrive at initial low dosage continue tele and vital monitor
[2019-04-03] MEDS: PANTOPRAZOLE 40 MG VIAL IVP SCH (12:17)
[2019-04-03 14:23] LABS: HGB - HEMOGLOBIN 8.1 g/dL (12.0-16.0); MEAN CORPUSCULAR HEMOGLOBIN 27.1 pg (27.0-31.0); MEAN CORPUSCULAR HGB CONC 32.9 g/dL (32.0-36.0); MEAN CORPUSCULAR VOLUME 82.2 fL (81.0-99.0); RED CELL DISTRIBUTION WIDTH 14.9 % (12.0-15.0); WHITE BLOOD COUNT 7.9 x10^3/uL (4.8-10.8)
[2019-04-03] MEDS: FERROUS SULFATE 325 MG TABLET PO SCH (17:26)
[2019-04-03] MEDS ORDERED: SODIUM/POTASSIUM/MAG SULFATES 354 ML PREP KIT PO SCH (18:00)
[2019-04-03 20:29] LABS: HGB - HEMOGLOBIN 7.6 g/dL (12.0-16.0); MEAN CORPUSCULAR HEMOGLOBIN 27.1 pg (27.0-31.0); MEAN CORPUSCULAR HGB CONC 32.6 g/dL (32.0-36.0); MEAN CORPUSCULAR VOLUME 83.2 fL (81.0-99.0); RED BLOOD COUNT 2.8 10^6/uL (4.20-5.40); WHITE BLOOD COUNT 6.9 x10^3/uL (4.8-10.8)
[2019-04-04] MEDS: SODIUM CHLORIDE 0.9% 1,000 ML IV SCH ×2 (03:10→04:09)
[2019-04-04 05:57] LABS: BASOPHILS % (AUTO) 0.7 %; EOSINOPHILS # (AUTO) 0.2 10^3/uL (0.0-0.7); EOSINOPHILS % (AUTO) 3.1 %; HGB - HEMOGLOBIN 8.1 g/dL (12.0-16.0); LYMPHOCYTES % (AUTO) 38.2 %; MEAN CORPUSCULAR HEMOGLOBIN 27.4 pg (27.0-31.0); MEAN CORPUSCULAR HGB CONC 32.8 g/dL (32.0-36.0); MEAN CORPUSCULAR VOLUME 83.4 fL (81.0-99.0); MEAN PLATELET VOLUME 6.2 fL (7.9-10.8); MONOCYTES # (AUTO) 0.4 10^3/uL (0.0-1.0); MONOCYTES % (AUTO) 6.7 %; NEUTROPHILS # (AUTO) 2.7 10^3/uL (1.5-6.6); NEUTROPHILS % (AUTO) 51.3 %; PLT - PLATELET COUNT 227 10^3/uL (130-450); RED BLOOD COUNT 2.96 10^6/uL (4.20-5.40); RED CELL DISTRIBUTION WIDTH 15.4 % (12.0-15.0); WHITE BLOOD COUNT 5.3 x10^3/uL (4.8-10.8)
[2019-04-04 06:10] LABS: CALCIUM 7.8 mg/dL (8.5-10.3); CREATININE 0.8 mg/dL (0.4-1.0)
[2019-04-04] MEDS: SODIUM CHLORIDE FLUSH 0.9% 10 ML SYRINGE IVP SCH ×2 (06:24→10:52)
[2019-04-04] MEDS: PANTOPRAZOLE 40 MG VIAL IVP SCH (06:24)
--- NOTE | 2019-04-04 08:59 | PROVIDER PROGRESS NOTE ---
Subjective - Prog Note Date Prog Note Date: 04/04/19 Prog Note Time: 08:56 - Subjective Pt reports feeling: Improved (Pt reports no bloody BMs overnight.) Objective - Vital Signs/Intake & Output Vital Signs: Vital Signs x48h Temp Pulse Pulse Pulse Pulse Resp BP 04/04/19 08:20 36.4 C L 78 14 163/81 H 04/04/19 04:57 85 114 H 76 04/04/19 04:15 36.7 C 79 18 147/68 H BP BP BP Pulse Ox 04/04/19 08:20 98 04/04/19 04:57 146/77 H 138/74 H 152/70 H 04/04/19 04:15 97 Intake & Output: Intake & Output 04/01/19 04/02/19 04/03/19 04/04/19 23:59 23:59 23:59 23:59 Intake Total 3450 1000 Output Total 680 800 Balance 2770 200 - Objective General Appearance: positive: No acute distress Abdomen: positive: Non-tender - Lab Results Fish Bones: 04/04/19 05:34 04/04/19 05:34 Other Labs: Lab Results x24hrs 04/04/19 04/04/19 04/03/19 Range/Units 05:34 05:34 20:21 WBC 5.3 6.9 (4.8-10.8) x10^3/uL RBC 2.96 L 2.80 L (4.20-5.40) 10^6/uL Hgb 8.1 L 7.6 L (12.0-16.0) g/dL Hct 24.7 L 23.2 L (37.0-47.0) % MCV 83.4 83.2 (81.0-99.0) fL MCH 27.4 27.1 (27.0-31.0) pg MCHC 32.8 32.6 (32.0-36.0) g/dL RDW 15.4 H 15.0 (12.0-15.0) % Plt Count 227 240 (130-450) 10^3/uL MPV 6.2 L 6.0 L (7.9-10.8) fL Neut # (Auto) 2.7 (1.5-6.6) 10^3/uL Lymph # (Auto) 2.0 (1.5-3.5) 10^3/uL [place] # (Auto) 0.4 (0.0-1.0) 10^3/uL Eos # (Auto) 0.2 (0.0-0.7) 10^3/uL Baso # (Auto) 0.0 (0.0-0.1) 10^3/uL Absolute Nucleated RBC 0.00 x10^3/uL Nucleated RBC % 0.1 /100WBC Sodium 142 (135-145) mmol/L Potassium 3.7 (3.5-5.0) mmol/L Chloride 115 H (101-111) mmol/L Carbon Dioxide 22 (21-32) mmol/L Anion Gap 5.0 L (6-13) BUN 13 (6-20) mg/dL Creatinine 0.8 (0.4-1.0) mg/dL Estimated GFR (MDRD) 72 L (>89) Glucose 109 H (70-100) mg/dL Glycated Hemoglobin (4.6-6.2) % Estim Average Glucose (70-100) Calcium 7.8 L (8.5-10.3) mg/dL Vitamin B12 (180-914) pg/mL Blood Type Recheck 04/03/19 04/03/19 04/03/19 Range/Units 14:18 14:18 07:47 WBC 7.9 (4.8-10.8) x10^3/uL RBC 3.00 L (4.20-5.40) 10^6/uL Hgb 8.1 L (12.0-16.0) g/dL Hct 24.7 L (37.0-47.0) % MCV 82.2 (81.0-99.0) fL MCH 27.1 (27.0-31.0) pg MCHC 32.9 (32.0-36.0) g/dL RDW 14.9 (12.0-15.0) % Plt Count 254 (130-450) 10^3/uL MPV 6.0 L (7.9-10.8) fL Neut # (Auto) (1.5-6.6) 10^3/uL Lymph # (Auto) (1.5-3.5) 10^3/uL [place] # (Auto) (0.0-1.0) 10^3/uL Eos # (Auto) (0.0-0.7) 10^3/uL Baso # (Auto) (0.0-0.1) 10^3/uL Absolute Nucleated RBC x10^3/uL Nucleated RBC % /100WBC Sodium (135-145) mmol/L Potassium (3.5-5.0) mmol/L Chloride (101-111) mmol/L Carbon Dioxide (21-32) mmol/L Anion Gap (6-13) BUN (6-20) mg/dL Creatinine (0.4-1.0) mg/dL Estimated GFR (MDRD) (>89) Glucose (70-100) mg/dL Glycated Hemoglobin 6.1 (4.6-6.2) % Estim Average Glucose 128 H (70-100) Calcium (8.5-10.3) mg/dL Vitamin B12 (180-914) pg/mL Blood Type Recheck A POSITIVE 04/03/19 Range/Units 07:47 WBC (4.8-10.8) x10^3/uL RBC (4.20-5.40) 10^6/uL Hgb (12.0-16.0) g/dL Hct (37.0-47.0) % MCV (81.0-99.0) fL MCH (27.0-31.0) pg MCHC (32.0-36.0) g/dL RDW (12.0-15.0) % Plt Count (130-450) 10^3/uL MPV (7.9-10.8) fL Neut # (Auto) (1.5-6.6) 10^3/uL Lymph # (Auto) (1.5-3.5) 10^3/uL [place] # (Auto) (0.0-1.0) 10^3/uL Eos # (Auto) (0.0-0.7) 10^3/uL Baso # (Auto) (0.0-0.1) 10^3/uL Absolute Nucleated RBC x10^3/uL Nucleated RBC % /100WBC Sodium (135-145) mmol/L Potassium (3.5-5.0) mmol/L Chloride (101-111) mmol/L Carbon Dioxide (21-32) mmol/L Anion Gap (6-13) BUN (6-20) mg/dL Creatinine (0.4-1.0) mg/dL Estimated GFR (MDRD) (>89) Glucose (70-100) mg/dL Glycated Hemoglobin (4.6-6.2) % Estim Average Glucose (70-100) Calcium (8.5-10.3) mg/dL Vitamin B12 1853 H (180-914) pg/mL Blood Type Recheck Sepsis Event Note (H) - Evaluation Current Stage of Sepsis: Ruled out Assessment/Plan - Problem List (1) GI bleed Impression: Pt stopped bleeding spontaneously. No bloody BMs and her H/H has been stable. Recommend advancing diet and follow up as outpatient as needed. Qualifiers: GI bleed type/associated pathology: unspecified gastrointestinal hemorrhage type Qualified Code(s): K92.2 - Gastrointestinal hemorrhage, unspecified
[2019-04-04 10:02] VITALS: BP 164/75
[2019-04-04] MEDS: POLYETHYLENE GLYCOL 3350 17 GM PACKET PO SCH (10:52)
[2019-04-04] MEDS: FERROUS SULFATE 325 MG TABLET PO SCH (10:56)
[2019-04-04] MEDS ORDERED: WHEAT DEXTRIN POWDER PACKET PO SCH (11:00)
--- NOTE | 2019-04-04 12:50 | Discharge Plan ---
Discharge Plan Disposition: Home, Self Care Condition: Good Prescriptions: Ferrous Gluconate 240 mg PO DAILY #30 tablet Wheat Dextrin [Benefiber] 1 each PO DAILY #30 powd.pack Diet: Regular Activity Restrictions: No Restrictions Shower Restrictions: No Driving Restrictions: No Additional Instructions or Follow Up instructions: You were admitted to the hospital for rectal bleeding with bright red blood. A consult was made to gastro-intestinal, who decided against a colonoscopy since your bleeding seemed to stop. A heart echocardiogram was completed since your blood pressure was dangerously low, which showed no evidence of a heart attack or valve abnormalities. It did show a thickened left ventricle called left ventricle hypertrophy and a condition called diastolic (resting) dysfunction, but a normal ejection fraction. This condition is many times caused by long standing uncontrolled blood pressure. The first line treatment for these 2 conditions is with a rate control medication called Metoprolol succinate. I will not prescribe this today since your blood pressure was very low just yesterday. Your blood levels became low from the bleeding, so we recommend that you take an iron supplement, which I have sent to the pharmacy. A hemoglobin A1C level was checked, and it was elevated at 6.1% (6.4% would indicate diabetes). I have provided teaching materials and recommend close follow up by your primary care provider. We learned that you have a condition called diverticulosis, so I have sent Benefiber to the pharmacy to be taken daily. Please follow up with your PCP within one week, and you will likely need a colonoscopy in the very near future to follow up on this bleeding event. No Smoking: If you smoke, Please STOP! Call for help.
--- NOTE | 2019-04-04 12:53 | DISCHARGE SUMMARY ---
Discharge Summary Admit Date: 04/03/19 Discharge Date: 04/04/19 Discharging Provider: Tamia Stephens Primary Care Provider: Amrita Sharma Code Status: Attempt Resuscitation Condition at Discharge: Good Discharge Disposition: 01 Home, Self Care - DIAGNOSES Admission Diagnoses: Gastrointestinal hemorrhage, unspecified (K92.2) Essential (primary) hypertension (I10) Discharge Diagnoses with Status of Each Condition: GI bleed (K92.2) Request outpatient colonoscopy since this event. Tolerating meals upon discharge, bleeding resolved Acute blood loss anemia (D62) Iron supplement x 30 days, follow up with PCP Hypertension (I10) suspected to be untreated Impaired fasting glucose (R73.01) HgA1C was 6.1%, teaching materials given, follow up with PCP Diverticulosis (K57.90) Known history, may be the most likely cause of this event, Benefiber daily, teaching given on diet choices, etc. 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 This abnormality is likely due to untreated HTN, recommend metoprolol succinate LVH (left ventricular hypertrophy) (I51.7) Rate control medications are re commended, likely a result of untreated HTN - HPI History of Present Illness: HPI per Dr. Madsen: Patient seen on 04/03/19 at 0500 am Patient is a 63 y/o female who is in very good health. She presented to the ED today via EMS after having about 6 episodes of bloody bowel movement at home. She reports that there was more blood than stool. Onset of her symptoms was around 0830pm on 04/02/19 about 1hr after she had a deli sandwich for dinner. Earlier in the day she played tennis with no difficulty. After the first episode she felt very dizzy and weak and could barely get out of the bathroom. She dialed 911. When EMS arrived, her vitals were stable. However, in the course of their evaluation she reported not feeling well and "phased out". Her SBP at the time was in the 70's. She denied any previous occurrence of these symptoms. She denied chest pain, LEFTY, abd pain, n/v, fever or chills. 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 She was on a medication whose name she does not remember and is no longer taking. She also use to take a blood pressure medication during that time but no longer does so. The rest of her history is unremarkable. - CONSULTS | PROCEDURES Consultations: General surgery- Dr. Dennis Procedures: None, no blood administered - HOSPITAL COURSE Hospital Course: The patient was observed overnight and had a resolution of her rectal bleeding. Her lowest hemoglobin was 7.6, which improved to 8.1 upon discharge. The patien t had no further bleeding after intermittent rectal bleeding. She was very hypotensive during the beginning of her stay which she was given oral midodrine x2. She was found to be hypertensive that leveled out prior to her discharge, but encouraged to have close follow up with both her impaired fasting glucose and untreated HTN. She was medically stable, had no further symptoms, was tolerating meals, and discharged home. - ALLERGIES Allergies/Adverse Reactions: Allergies Allergy/AdvReac Type Severity Reaction Status Date / Time No Known Drug Allergies Allergy Verified 01/06/14 19:17 - MEDICATIONS Home Medications: Ambulatory Orders Medication Instructions Recorded Confirmed Foods You Can Wellness Packs 1 each PO DAILY 04/03/19 Ferrous Gluconate 240 mg PO DAILY #30 tablet 04/04/19 Wheat Dextrin [Benefiber] 1 each PO DAILY #30 powd.pack 04/04/19 - PHYSICAL EXAM AT DISCHARGE General Appearance: positive: No acute distress, Alert Eyes Bilateral: positive: Normal inspection, PERRL Neck: positive: Thyroid nml, No JVD, Trachea midline Respiratory: positive: Chest non-tender, No respiratory distress, Breath sounds nml Cardiovascular: positive: Regular rate & rhythm, No gallop, Systolic murmur Peripheral Pulses: positive: 2+ Abdomen: positive: Non-tender, No organomegaly, Nml bowel sounds Back: positive: Nml inspection Skin: positive: Color nml, No rash, Warm, Dry Extremities: positive: Non-tender, Full ROM, Nml appearance, No pedal edema Neurologic/Psychiatric: positive: Oriented x3, CN's nml (2-12), Motor nml, Sensation nml, Mood/affect nml Reflexes: Bicep (R): 4+, Bicep (L): 4+ - LABS Result Diagrams: 04/04/19 05:34 04/04/19 05:34 - DIAGNOSTIC IMAGING Diagnostic Imaging Results: Final report reviewed Diagnostic Imaging Results Comments: EXAM: CT ABDOMEN AND PELVIS EXAM DATE: 04/03/2019 03:18 AM IMPRESSION: 1. Colonic diverticulosis with no definite diverticulitis. 2. Liquid stool in the colon consistent with a history of diarrhea. 3. No other acute inflammatory or obstructive process seen in the abdomen or pelvis. EXAM: BILATERAL CAROTID AND VERTEBRAL ARTERY DUPLEX DOPPLER ULTRASOUND EXAM DATE: 04/03/2019 10:55 AM FINDINGS: There is mild intimal thickening bilaterally. No significant plaque is identified in the right or left common or internal carotid arteries. Normal antegrade flow is present in bilateral vertebral arteries. IMPRESSION: 1. No significant bilateral carotid artery plaquing. 2. In the right carotid artery there are no elevated carotid artery velocities to suggest hemodynamically significant stenosis. 3. In the left carotid artery there are no elevated carotid artery velocities to suggest hemodynamically significant stenosis. 4. Normal antegrade flow is present in bilateral vertebral arteries. ECHOCARDIOGRAM: 04/03/2019 Final 1. Mild to moderate concentric LV hypertrophy. 2. Overall LV systolic function is normal with an EF 65-70%. - FOLLOW UP Follow Up: Disposition: Home, Self Care Prescriptions: Ferrous Gluconate 240 mg PO DAILY #30 tablet Wheat Dextrin [Benefiber] 1 each PO DAILY #30 powd.pack Diet: Regular Additional Instructions or Follow Up instructions: You were admitted to the hospital for rectal bleeding with bright red blood. A consult was made to gastro-intestinal, who decided against a colonoscopy since your bleeding seemed to stop. A heart echocardiogram was completed since your blood pressure was dangerously low, which showed no evidence of a heart attack or valve abnormalities. It did show a thickened left ventricle called left ventricle hypertrophy and a condition called diastolic (resting) dysfunction, but a normal ejection fraction. This condition is many times caused by long standing uncontrolled blood pressure. The first line treatment for these 2 conditions is with a rate control medication called Metoprolol succinate. I will not prescribe this today since your blood pressure was very low just yesterday. Your blood levels became low from the bleeding, so we recommend that you take an iron supplement, which I have sent to the pharmacy. A hemoglobin A1C level was checked, and it was elevated at 6.1% (6.4% would indicate diabetes). I have provided teaching materials and recommend close f ollow up by your primary care provider. We learned that you have a condition called diverticulosis, so I have sent Benefiber to the pharmacy to be taken daily. Please follow up with your PCP within one week, and you will likely need a colonoscopy in the very near future to follow up on this bleeding event. - TIME SPENT Time Spent in Discharge (Minutes): 45
[2019-04-05] MEDS ORDERED: PANTOPRAZOLE 40 MG TABLET PO SCH (07:00)
== END 2019-04-04 13:52 | disposition home or self-care (01) ==
LOC: EDUNIT# → ED 02:01 → MS2 04:24
PROVIDERS: ADMIT Internal Medicine; ATTEND Nurse Practitioner
DX: K92.2 Gastrointestinal hemorrhage, unspecified (principal); D62 Acute posthemorrhagic anemia; R73.01 Impaired fasting glucose; K57.90 Diverticulosis of intestine, part unspecified, without perforation or abscess without bleeding; I11.9 Hypertensive heart disease without heart failure; I95.1 Orthostatic hypotension; Z86.39 Personal history of other endocrine, nutritional and metabolic disease; Z79.899 Other long term (current) drug therapy; Z87.891 Personal history of nicotine dependence
CPT/HCPCS: 36415; 74177; 80048; 81001; 82533; 82607; 82728; 83036; 83540; 83615; 83690; 84466; 84484; 85025; 85027; 85044; 85610; 86850; 86900; 86901; 93005; 93306; 93880; 96360; 96361; 96374; 96376; 99284; 99285; A9270; G0378; Q9967; 80053; 81003; 82272; 84443; 87086